=== PATIENT | female | born 1985 | race Caucasian/White ===

== ENCOUNTER 2016-12-09 06:30 | Inpatient (IN) | payer BC ==
[~2016-12-09] VITALS: Ht 167.6 cm; Wt 79.8 kg
[2016-12-09] MEDS ORDERED: FAMOTIDINE 20 MG TAB PO PRN (06:40)
[2016-12-09] MEDS ORDERED: ONDANSETRON 4 MG VIAL IV PRN (06:40)
[2016-12-09] MEDS ORDERED: MORPHINE 2 MG/ML SYR IV PRN (06:40)
[2016-12-09] MEDS ORDERED: ACETAMINOPHEN 325 MG TAB PO PRN (06:40)
[2016-12-09] MEDS ORDERED: PROMETHAZINE 25 MG/ML VIAL IV PRN (06:40)
[2016-12-09] MEDS ORDERED: FAMOTIDINE 20 MG INJ IV PRN (06:40)
[2016-12-09] MEDS ORDERED: METOCLOPRAMIDE 10 MG/2 ML VIAL IV PUSH PRN (06:40)
[2016-12-09] MEDS ORDERED: OXYTOCIN 15 UNITS/250 ML NS 250 ML IV SCH ×2 (06:40)
[2016-12-09] MEDS ORDERED: PENICILLIN G 5 MU in SODIUM CHLORIDE 0.9% 250 ML IV ONE (06:40)
[2016-12-09] MEDS ORDERED: LIDOCAINE 1% 30 ML PF INFILTRATE ONE (06:40)
[2016-12-09] MEDS ORDERED: LIDOCAINE 1% BUFFERED 1 ML SYR INTRADERM PRN (06:40)
[2016-12-09] MEDS ORDERED: TERBUTALINE 1 MG/ML VIAL SUBQ PRN (06:40)
[2016-12-09] MEDS ORDERED: ALU/MAG/SIM 30 ML UDC PO PRN (06:40)
[2016-12-09] MEDS ORDERED: CEFAZOLIN (LD/OB) 100 ML IV PRN (06:40)
[2016-12-09] MEDS ORDERED: LIDOCAINE 2% 5 ML IV ONE (06:44)
[2016-12-09 07:45] VITALS: Ht 167.6 cm; Wt 79.8 kg
[2016-12-09] MEDS ORDERED: MEASLES,MUMPS,RUBELLA VAC SUBQ.VACC ONE (10:18)
[2016-12-09] MEDS: PENICILLIN G 2.5 MU in SODIUM CHLORIDE 0.9% 100 ML IV SCH ×4 (11:53→23:02)
[2016-12-09] MEDS: LACT RINGERS 1,000 ML IV SCH ×3 (14:01→19:12)
[2016-12-09] MEDS ORDERED: ROPIV/FENT 0.2%-2MCG/ML 100 ML EPIDURAL ONE (18:42)
[2016-12-09] MEDS ORDERED: FENTANYL 100 MCG/2 ML AMP ONE (18:43)
[2016-12-09] MEDS ORDERED: ROPIV/FENT 0.2%-2MCG/ML 100 ML EPIDURAL SCH (19:35)
[2016-12-09] MEDS ORDERED: SODIUM CHLORIDE 0.9% 500 ML IV PRN (19:35)
[2016-12-09] MEDS ORDERED: LACT RINGERS 500 ML IV ONE (19:35)
[2016-12-09] MEDS ORDERED: LACT RINGERS 500 ML IV PRN (19:35)
[2016-12-09] MEDS ORDERED: FENTANYL 100 MCG/2 ML AMP EPIDURAL ONE (19:35)
[2016-12-09] MEDS: **ONLY ANESTEHSIA MAY ORDER OPIATES WHILE ON EPIDURAL XX SCH (20:05)
[2016-12-10] VITALS (17 sets, daily range): BP systolic 94–142; RESP 12–18; TEMP 97.6–98.4
[2016-12-10] MEDS: LACT RINGERS 1,000 ML IV SCH (00:56)
[2016-12-10] MEDS ORDERED: MISOPROSTOL 100 MCG TAB ONE (02:58)
[2016-12-10] MEDS: PENICILLIN G 2.5 MU in SODIUM CHLORIDE 0.9% 100 ML IV SCH ×2 (03:00→06:54)
[2016-12-10] MEDS ORDERED: MEPERIDINE 25 MG/ML IV PRN (04:10)
[2016-12-10] MEDS ORDERED: PROMETHAZINE 25 MG/ML VIAL IV PRN (04:10)
[2016-12-10] MEDS ORDERED: OXYCODONE 5 MG TAB PO PRN (04:10)
[2016-12-10] MEDS ORDERED: ONDANSETRON 4 MG VIAL IV PRN ×3 (04:10→05:15)
[2016-12-10] MEDS ORDERED: MORPHINE 4 MG/ML SYR IV PRN ×2 (04:10)
[2016-12-10] MEDS ORDERED: DIPHENHYDRAMINE 50 MG/ML VIAL IV PRN (04:10)
[2016-12-10] MEDS ORDERED: NALOXONE 0.4 MG/ML AMP IV PRN (04:10)
[2016-12-10] MEDS ORDERED: SALINE FLUSH 10 ML FLUSH PRN (04:10)
[2016-12-10] MEDS ORDERED: BUTORPHANOL 1 MG/ML VIAL IV PRN (04:10)
[2016-12-10] MEDS ORDERED: MORPHINE 2 MG/ML SYR IV PRN ×2 (04:10)
[2016-12-10] MEDS ORDERED: MEASLES,MUMPS,RUBELLA VAC SUBQ.VACC ONE (05:15)
[2016-12-10] MEDS ORDERED: MAG HYDROX 30 ML UDC PO PRN (05:15)
[2016-12-10] MEDS ORDERED: MISOPROSTOL 200 MCG TAB RECTAL ONE (05:15)
[2016-12-10] MEDS ORDERED: LACT RINGERS 1,000 ML IV SCH (05:15)
[2016-12-10] MEDS ORDERED: MISOPROSTOL 200 MCG TAB PO ONE (05:15)
[2016-12-10] MEDS: DILAUDID 1 MG/ML AMP IV PRN ×2 (05:15→05:20)
[2016-12-10] MEDS ORDERED: OXYTOCIN 15 UNITS/250 ML NS 250 ML IV SCH (05:15)
[2016-12-10] MEDS ORDERED: TDaP 0.5 ML VIAL IM.VACC ONE (05:15)
[2016-12-10] MEDS ORDERED: OXYCODONE/APAP 5/325 TAB PO PRN (05:15)
[2016-12-10] MEDS: SODIUM CHLORIDE 0.9% FLUSH BAG 500 ML IV SCH (05:16)
[2016-12-10] MEDS: KETOROLAC 30 MG/ML VIAL IV SCH ×4 (05:18→23:46)
[2016-12-10] MEDS: **ONLY ANESTEHSIA MAY ORDER OPIATES WHILE ON EPIDURAL XX SCH ×2 (08:00→20:00)
[2016-12-10] MEDS: SALINE FLUSH 10 ML FLUSH SCH ×2 (08:00→20:00)
[2016-12-10] MEDS: DOCUSATE SOD 100 MG CAP PO SCH (11:52)
[2016-12-11 01:27] VITALS: BP_SYST 103; RESP 16; TEMP 98.2
[2016-12-11 05:30] VITALS: BP_SYST 116; RESP 16; TEMP 98.2
[2016-12-11] MEDS: SODIUM CHLORIDE 0.9% FLUSH BAG 500 ML IV SCH (06:00)
[2016-12-11] MEDS: SALINE FLUSH 10 ML FLUSH SCH (08:00)
[2016-12-11] MEDS: **ONLY ANESTEHSIA MAY ORDER OPIATES WHILE ON EPIDURAL XX SCH (08:00)
[2016-12-11] MEDS: Ibuprofen 800 MG TAB PO SCH ×3 (08:13→23:23)
[2016-12-11] MEDS: DOCUSATE SOD 100 MG CAP PO SCH (08:13)
[2016-12-11] MEDS: OXYCODONE/APAP 5/325 TAB PO PRN ×3 (08:14→21:19)
[2016-12-11 09:22] VITALS: TEMP 98.3
[2016-12-11 09:23] VITALS: BP_SYST 105; RESP 16
[2016-12-11 18:07] VITALS: BP_SYST 108; TEMP 98.1
[2016-12-11 18:08] VITALS: RESP 20
[2016-12-12 05:26] VITALS: BP_SYST 111; RESP 16; TEMP 98
[2016-12-12] MEDS: DOCUSATE SOD 100 MG CAP PO SCH (07:57)
[2016-12-12] MEDS: Ibuprofen 800 MG TAB PO SCH ×2 (07:58→15:26)
[2016-12-12] MEDS: OXYCODONE/APAP 5/325 TAB PO PRN (09:09)
[2016-12-12 09:26] VITALS: BP_SYST 112; RESP 18; TEMP 97.7
[2016-12-12 14:34] VITALS: BP_SYST 112; RESP 18; TEMP 97.7
== END 2016-12-12 15:55 | disposition home or self-care (01) | DRG 766 ==
LOC: LD 06:31 → OB 12-10 07:42
PROVIDERS: ADMIT Obstetrics & Gynecology; ATTEND Obstetrics & Gynecology
PROC: 10907ZC Drainage of Amniotic Fluid, Therapeutic from Products of Conception, Via Natural or Artificial Opening (ICD-10-PCS; 2016-12-09)
PROC: 3E033VJ Introduction of Other Hormone into Peripheral Vein, Percutaneous Approach (ICD-10-PCS; 2016-12-09)
PROC: 10D00Z1 Extraction of Products of Conception, Low, Open Approach (ICD-10-PCS; principal; 2016-12-10)
DX: O62.0 Primary inadequate contractions (principal); O36.63X0 Maternal care for excessive fetal growth, third trimester, not applicable or unspecified; Z3A.39 39 weeks gestation of pregnancy; Z37.0 Single live birth
CPT/HCPCS: 82803; 85025; 86850; 86900; 86901